=== PATIENT | male | born 1980 ===

== ENCOUNTER 2016-12-16 22:44 | Emergency (ER) | payer MEDICAID ==
[~2016-12-16] VITALS: Ht 175.3 cm; Wt 84.1 kg
[~2016-12-16 22:44] MED LIST: DIL2 PO; OXYC-176 PO
[2016-12-16 22:49] VITALS: BP 123/82; PULSE 86; RESP 16; O2SAT 100
--- NOTE | 2016-12-16 23:06 | ED.REPORT ---
HPI-NVD Date of Service Dec 16, 2016 ED Provider: Pepper Avina MD Pt is a previously healthy 36 y/o male presenting to the ED with his fiance c/o diffuse abdominal pain onset 3 days ago. His pain seems to occur mostly after eating but also occurs constantly. He c/o associated malaise, generalized weakness, nausea, vomiting, anorexia. He had some meatloaf today and afterwards experienced watery tarry diarrhea. Pt denies fever, hematemesis (he states he had small specks of blood during one vomiting episode). He has had dark tarry stools intermittently for 5 years but not as consistent as today. He has vomited about 3 times total and has a couple episodes of diarrhea after eating. He does not take Iron or use Pepto Bismal. He drinks socially, smokes daily, and does not use drugs. He has no history of GI bleeding. He has no history of surgeries. Nursing Notes Stated Complaint: STOMACH PAIN,VOMITING,BLACK STOOL Chief Complaint: Male Abdominal Pain Nursing Notes Reviewed: Yes Allergies: Coded Allergies: No Known Allergies (Unverified Allergy, Unknown, 12/16/16) Scheduled Hydromorphone-Expunged Drug, Do Not Renew! (Hydromorphone-Expunged Drug, Do Not Renew!) 2 Mg Tablet 1 MG PO Q4HP Omeprazole (Omeprazole) 40 Mg Capsule.dr 40 MG PO DAILY Oxycodone/APAP-Expunged Drug, Do Not Renew! (Percocet 5/325-Expunged Drug, Do Not Renew!) 1 Each Tablet 1-2 TAB PO Q4H Scheduled PRN Promethazine (Promethazine) 25 Mg Tablet 25 MG PO Q6H PRN PRN For Nausea General Time Seen by MD: 23:02 Chief Complaint Abd pain, constant Hx Obtained From: Patient Arrived By: Walk-in Onset Occurred: 3 days ago Symptom Duration: Since onset Location: : Diffuse Quality: Painful Severity: Current: Moderate Severity: Maximum: Moderate Recent Healthcare: No recent hospitalization Similar Sx Previous: No Past Medical History Past Medical History Denies Hx traumatic pneumothorax Past Surgical History Denies Smoking History Current Every Day Smoker Social History Alcohol Use: "Social" Drug Use: Denies drug use Ambulatory Status Independent Review of Systems Constitutional: Reports: Malaise, Weakness - generalized, Denies: Fever GI: Reports: Abdominal pain, Anorexia, Bloody/tarry stool, Diarrhea, Nausea, Vomiting, Denies: Hematemesis Complete sys rev & neg: except as marked. Physical Exam Initial Vital Signs Vital Signs (First) Date Time Temp Pulse Resp B/P Pulse Ox O2 Delivery O2 Flow Rate FiO2 12/16/16 22:49 36.7 86 16 123/82 100 Room Air Initial VS: Reviewed, Vital signs normal Head / Eyes: Atraumatic, Normocephalic, PERRL ENT: Mucous membranes moist, Conjunctiva normal, No scleral icterus Neck: Supple, Full range of motion Respiratory: Breath sounds normal, Clear to auscultation, No respiratory distress Extremities: Vascular intact, Neuro intact, No swelling Skin: Warm, Dry, No cyanosis Neurologic: Alert, Oriented, Nonfocal Psychiatric: Mood/affect normal, Behavior normal, Normal thought content General/Constitutional: Awake, Alert, Cooperative, Not toxic appearing Appearance / Presentation: Positive: Ill appearing/not toxic Abdomen: Atraumatic, Soft, No guarding, No rebound, BS normoactive, No distention, No palpable mass Tenderness/Guarding/Rebound: Positive: Tender diffuse (mild) Rectal for Blood: Positive: Blood - occult heme + Interpretation & Diagnostics Lab Results Interpretation Result Diagram: 12/17/16 0022 12/17/16 0022 Test 12/17/16 00:22 12/17/16 00:23 12/17/16 01:06 White Blood Count 6.1th/mm3 (3.8-10.1) Red Blood Count 5.13mil/mm3 (4.40-5.80) Hemoglobin 15.1g/dL (13.8-17.2) Hematocrit 43.1% (41.0-50.0) Mean Corpuscular Volume 84.0fL (81-100) Mean Corpuscular Hemoglobin 29.4pg (27.0-35.0) Mean Corpuscular Hemoglobin Concent 35.0% (32.0-37.0) Red Cell Distribution Width 14.1% (12.3-15.4) Platelet Count 438bil/L (150-400) Neutrophils (%) (Auto) 46.2% (40-74) Lymphocytes (%) (Auto) 45.4% (14-46) Monocytes (%) (Auto) 6.9% (4-12) Eosinophils (%) (Auto) 1.0% (0-5) Basophils (%) (Auto) 0.5% (0-3) Sodium Level 141mEq/L (134-144) Potassium Level 4.0mEq/L (3.5-5.2) Chloride Level 102mEq/L (97-108) Carbon Dioxide Level 22mmol/L (18-29) Blood Urea Nitrogen 11mg/dL (6-20) Creatinine 1.04mg/dL (0.76-1.27) Estimat Glomerular Filtration Rate 85mL/min (>59) Glucose Level 98mg/dL (60-99) Calcium Level 9.3mg/dL (8.5-10.1) Magnesium Level 2.3mg/dL (1.6-2.6) Total Bilirubin 0.4mg/dL (0.0-1.2) Aspartate Amino Transf (AST/SGOT) 39U/L (0-50) Alanine Aminotransferase (ALT/SGPT) 50U/L (0-44) Alkaline Phosphatase 70U/L (25-150) Total Protein 8.3g/dL (6.4-8.4) Albumin 4.7g/dL (3.4-5.0) Lipase 52U/L (13-60) Hold Sommers Top Tube Received (Received) Hold Urine Received (Received) ECG Interpretation Time: 23:25 Interpreted by: ED physician Normal ECG Interpretation: Normal ECG w/ rate of... (77), Normal rate, Normal sinus rhythm, No acute ischemic changes, Normal QRS, Normal axis, Normal intervals, Adequate tracing Re-Eval/Medical Decision Med Decision/Clinical Course likely gastritis. begin PPI, nausea med. Only pain med should be tylenol. Again has questions regarding BRBPR. Given his fear of rectal exam (PTSD memories from [facility] according to pt), the full evaluation for his bleeding will certainly be complicated by the overlying psychiatric fears. Discussed need for soft stool to avoid rectal bleeding and availability of treatment if he would like to consider care. Re-Evaluation/Progress : Time of Eval: 01:28 Re-Evaluation/Progress Note: Pt rechecked. Feeling better. Discussed lab results. Informed pt of plan for discharge. Pt understands and agrees with plan for discharge. F/U instructions and RTER warnings given. All questions addressed. Counseled Regarding: Diagnosis, Lab results, Need for follow-up, When/why to return to ED Discharge & Departure Impression: Primary Impression: Abdominal pain Abdominal location: generalized Qualified Code: R10.84 - Generalized abdominal pain Additional Impression: Gastritis Gastritis type: unspecified gastritis Chronicity: chronic Gastritis bleeding: with bleeding Qualified Code: K29.51 - Unspecified chronic gastritis with bleeding Disposition: Home Discharge Condition All VS Reviewed: Yes Condition: Improved Patient Instructions: Acute Abdominal Pain (ED), Gastritis (ED) Additional Instructions: The cause of your symptoms is unclear at this time but may be due to gastritis, irritation of the stomach. I would like you to begin taking Omeprazole daily. This may help your pain. It can take many days for this medication to begin taking effect. Avoid NSAID medications and alcohol as this can worsen symptoms of gastritis. Return to the emergency department if you experience worsening abdominal pain, persistent vomiting, fever, change or increase in bloody/dark stools, lightheadedness, or for other concerning symptoms. Follow-up with your primary care doctor in 2 weeks for a recheck; make sure your stomach is feeling better and to also discuss the rectal bleeding and hemorrhoids.. Referrals: OTHER,PHYSICIAN (PCP) Scribe Attestation Portions of this note were transcribed by Gomez Parkinson. I, Dr. Avina personally performed the history, physical exam and medical decision-making; I reviewed and confirmed the accuracy of the information in the transcribed note. Pepper Avina MD Dec 16, 2016 23:06 GOMEZ PARKINSON Dec 16, 2016 23:13
[2016-12-16] MEDS ORDERED: 0.9% Sodium Chloride 1,000 ML IV ONE (23:09)
[2016-12-16] MEDS ORDERED: Ondansetron 2 mg/mL 2 mL Inj IVPUSH ONE (23:10)
[2016-12-17 00:09] VITALS: BP 106/50; PULSE 75; RESP 21; O2SAT 97
[2016-12-17 00:26] LABS: BASOPHILS % (AUTO) 0.5 % (0-3); MONOCYTES % (AUTO) 6.9 % (4-12); Mean Corpuscular Hemoglobin 29.4 pg (27.0-35.0); NEUTROPHILS % (AUTO) 46.2 % (40-74); Platelet Count 438 bil/L (150-400)
[2016-12-17 01:05] LABS: Magnesium 2.3 mg/dL (1.6-2.6)
[2016-12-17] MEDS ORDERED: Promethazine Inj 25 MG in Dextrose 5%-Pha MIX 50 ML IV ONE (01:15)
[2016-12-17] MEDS ORDERED: Pantoprazole 40 mg ER24 Tablet PO ONE (01:15)
[2016-12-17] MEDS ORDERED: PROM25TA14 PO (01:47)
[2016-12-17] MEDS ORDERED: OMEP40CA36 PO (01:47)
[2016-12-17 02:10] VITALS: BP 99/51; PULSE 60; RESP 18; O2SAT 98
== END 2016-12-17 02:10 | disposition home or self-care (01) ==
LOC: SED 22:44
DX: K29.70 Gastritis, unspecified, without bleeding (principal); R53.83 Other fatigue; R53.1 Weakness; F17.200 Nicotine dependence, unspecified, uncomplicated
CPT/HCPCS: 36415; 80053; 83690; 83735; 85025; 93005; 96361; 96374; 96375; 99285; J2405; J2550; J7030